=== PATIENT | male | born 1980 | race Hispanic/Latino ===

== ENCOUNTER 2016-03-23 22:15 | Emergency (ER) | payer OTHER, SELFPAY ==
[2016-03-23] MEDS ORDERED: Furosemide 40 MG/4 ML VIAL ONE (22:45)
[2016-03-23 22:56] LABS: #Basophils 0.1 thou/uL (0.0-0.2); #Eosinphils 0.1 thou/uL (0.0-0.7); #Monocytes 0.2 thou/uL (0.11-0.59); #Neutrophils 8.3 thou/uL (1.40-6.50); %Basophils 0.7 % (0.0-1.0); %Eosinophils 0.7 % (0.0-10.0); %Monocytes 1.6 % (0.0-10.0); Hematocrit 42.5 % (42.0-52.0); Mean Platelet Volume 7.1 fL (7.4-10.4); Red Blood Cell (RBC) Count 4.75 mill/uL (4.70-6.10); White Blood Cell (WBC) Count 9.6 thou/uL (4.8-10.8)
[2016-03-23 22:58] LABS: Bilirubin Negative (Negative); Blood, Urine Trace (Negative); Glucose, Urine (Dipstick) Negative (Negative); Ketone, Urine Negative (Negative); Nitrite Negative (Negative); Protein, Urine (Dipstick) Negative (Neg-Trace); Urobilinogen 0.2 mg/dL (0.2-1.0)
[2016-03-23 23:08] LABS: ALT (SGPT) 40 U/L (0-55); AST (SGOT) 31 U/L (5-34); Alkaline Phosphatase 69 U/L (40-150); Anion Gap 15 mmol/L (10-20); BUN (Urea Nitrogen) 20 mg/dL (8.9-20.6); Bilirubin, Total 0.4 mg/dL (0.2-1.2); Calc. Creatinine Clearance 0 mL/min (70-130); Calcium 9.4 mg/dL (7.8-10.44); Carbon Dioxide 25 mmol/L (22-29); Chloride 103 mmol/L (98-107); Estimated GFR-MDRD 72; Globulin 3.2 g/dL (2.4-3.5); Protein, Total 7.7 g/dL (6.0-8.3); RBC/HPF 0-3 HPF (0-3); Squamous Epithelial 0-3 HPF (0-3); WBC/HPF 0-3 HPF (0-3)
[2016-03-23] MEDS ORDERED: Acetaminophen 500 MG TAB ONE (23:27)
[2016-03-23] MEDS ORDERED: cefTRIAXone\\ROCEPHIN 1 GM VIAL ONE (23:27)
== END 2016-03-24 00:21 | disposition home or self-care (01) ==
LOC: BURERS 22:15
DX: J06.9 Acute upper respiratory infection, unspecified (principal); R06.4 Hyperventilation
CPT/HCPCS: 80053; 81003; 81015; 85025; 96361; 96365; J0696; J1940